=== PATIENT | female | born 1950 | race Two or more races ===

== ENCOUNTER 2019-12-23 08:03 | Outpatient (CLI) | payer MEDICAID, MEDICARE | END 2019-12-23 23:59 | disposition home or self-care (01) | LOC: CFH 08:03 → MERGE 08:03 → CFH 23:59 | PROVIDERS: ATTEND Family Medicine | DX: Z12.31 Encounter for screening mammogram for malignant neoplasm of breast (principal); R94.5 Abnormal results of liver function studies | CPT/HCPCS: 76705; 77067 ==